=== PATIENT | female | born 1985 | race Caucasian/White ===

== ENCOUNTER 2016-12-07 12:22 | Emergency (ER) | payer BC ==
[2016-12-07 12:45] VITALS: BP 155/83
--- NOTE | 2016-12-07 13:03 | UC ---
Throat Pain/Nasal Manoj HPI - HPI Summary HPI Summary: 31 female presents with complaints of nasal congestion, chest congestion, cough and sore throat that began 3 days ago. Patient states the sore throat was first however she developed new symptoms of cough and chest congestion the last day or so. Cough is non-productive. Sore throat is constant. Denies fever/chills, SOB, abdominal pain, nausea, vomiting and recent flu/strep exposure. She does however walk at hospital where everyone is sick. Has been taking Sinex/Mucinex the past 3 days and states has not had much of any relief. No significant PMHx. Does admit to having mid-chest tightness upon coughing. - History of Current Complaint Chief Complaint: UCRespiratory Stated Complaint: CONGESTION Time Seen by Provider: 12/07/16 12:45 Hx Obtained From: Patient Hx Last Menstrual Period: 2012 ?: No Onset/Duration: Sudden Onset, Lasting Days, Worse Since Severity: Mild Pain Intensity: 6 Pain Scale Used: 0-10 Numeric Cough: Nonproductive Associated Signs & Symptoms: Positive: Dysphagia, Nasal Discharge - Allergies/Home Medications Allergies/Adverse Reactions: Allergies Allergy/AdvReac Type Severity Reaction Status Date / Time Amoxicillin [From Augmentin] Allergy Hives Verified 12/07/16 12:45 Clavulanic Acid Allergy Hives Verified 12/07/16 12:45 [From Augmentin] Penicillins Allergy Hives Verified 12/07/16 12:45 Sulfa Antibiotics Allergy Hives Verified 12/07/16 12:45 Home Medications: Home Medications Sinex 2 tab PO Q6HR PRN 12/07/16 [History] PMH/Surg Hx/FS Hx/Imm Hx Endocrine History Of: Denies: Diabetes, Thyroid Disease Cardiovascular History Of: Denies: Cardiac Disorders, Hypertension Respiratory History Of: Denies: COPD, Asthma GI/ History Of: Denies: Ulcer - Surgical History Surgical History: Yes Surgery Procedure, Year, and Place: ganglion cyst removal right wrist. T&A - Family History Known Family History: Positive: None - Social History Alcohol Use: None Substance Use Type: None Smoking Status (MU): Former Smoker When Did the Patient Quit Smoking/Using Tobacco: 2004 - Immunization History Most Recent Influenza Vaccination: 07/24 Review of Systems Constitutional: Negative Skin: Negative Eyes: Negative ENT: Sore Throat, Ear Ache, Nasal Discharge Respiratory: Shortness Of Breath, Cough Cardiovascular: Chest Pain - when coughing, tightness Gastrointestinal: Negative Musculoskeletal: Negative Neurological: Negative Psychological: Negative All Other Systems Reviewed And Are Negative: Yes Physical Exam Triage Information Reviewed: Yes Appearance: Well-Appearing, No Pain Distress, Well-Nourished Vital Signs: Initial Vital Signs Temp 98.4 F 12/07/16 12:37 Pulse 94 12/07/16 12:37 Resp 18 12/07/16 12:37 BP 155/83 12/07/16 12:37 Pulse Ox 98 12/07/16 12:37 re-checked BP before discharge. Vital Signs Reviewed: Yes Eyes: Positive: Conjunctiva Clear ENT: Positive: Hearing grossly normal, Pharyngeal erythema - inflammed, Nasal congestion - sounds congested upon talking, Nasal drainage, TMs normal. Negative: Tonsillar swelling, Tonsillar exudate Dental: Negative: Percussion Tenderness @, Cervical Lymphadenopathy Neck: Positive: Supple, Nontender, No Lymphadenopathy Respiratory: Positive: Chest non-tender, Lungs clear, Normal breath sounds, No respiratory distress, No accessory muscle use Cardiovascular: Positive: RRR, No Murmur, Pulses Normal, Brisk Capillary Refill - < 2 seconds Musculoskeletal: Positive: Strength Intact, ROM Intact Neurological Exam: Normal Psychological Exam: Normal Skin Exam: Normal Re-Evaluation - Re-Evaluation First Eval Re-Evaluation Time: 14:40 Change: Improved - felt better, able to breath easier after duoneb administered Throat Pain/Nasal Course/Dx - Course Course Of Treatment: flonase prescribed to use at home. duoneb administered in office to help with congestion and patient preference. symptomatic measures instructed at this time. - Differential Dx/Diagnosis Differential Diagnosis/HQI/PQRI: Otitis Media, Pharyngitis, Sinusitis, URI Provider Diagnoses: URI Discharge - Discharge Plan Condition: Stable Disposition: HOME Prescriptions: Fluticasone NASAL SPRAY 50MCG* [Flonase NASAL SPRAY 50MCG*] 2 spray BOTH NARES DAILY #1 btl Patient Education Materials: Upper Respiratory Infection (ED) Referrals: [facility] [Outside] Non Staff,Doctor [Primary Care Provider] - Additional Instructions: Continue taking Mucinex to help break up chest congestion. Use prescribed nasal spray daily for the next few days while symptoms persist. Hot showers/humidified air also help with congestion. Saline nasal rinses help with congestion and moisturize the airways. Chloraseptic spray will help numb your sore throat and gargling with salt water. Try using Vicks vapor rub on your chest before bed. Drink plenty of fluids and rest. If symptoms persist or are not improving within 7-10days please seek medical attention or follow-up with your PCP.
[2016-12-07] MEDS ORDERED: Albuterol/Ipratropium NEB.SOL* Albuterol 2.5 MG/Ipratropium 0.5 MG 3 ML INH ONE (13:15)
== END 2016-12-07 13:49 | disposition home or self-care (01) ==
LOC: UCCORT 12:22
DX: J06.9 Acute upper respiratory infection, unspecified (principal); Z88.1 Allergy status to other antibiotic agents; Z88.2 Allergy status to sulfonamides; Z88.0 Allergy status to penicillin; Z87.891 Personal history of nicotine dependence
CPT/HCPCS: 99212; A9270-GY; G0463

== ENCOUNTER 2017-11-28 14:23 | Emergency (ER) | payer BC | END 2017-11-28 15:56 | disposition left against medical advice (07) | LOC: UCCORT 14:23 | DX: J02.9 Acute pharyngitis, unspecified (principal); H93.90 Unspecified disorder of ear, unspecified ear; R68.89 Other general symptoms and signs; Z53.21 Procedure and treatment not carried out due to patient leaving prior to being seen by health care provider ==